=== PATIENT | male | born 2000 | race African-American/Black ===

== ENCOUNTER 2023-03-10 15:15 | Outpatient (CLI) | payer OTHER ==
[2023-03-11 03:52] LABS: CHLAMYDIA TRACHOMATIS DNA NEGATIVE (NEGATIVE)
[2023-03-11 03:53] LABS: NEISSERIA GONORRHOEAE DNA NEGATIVE (NEGATIVE); TRICHOMONAS VAGINALIS DNA NEGATIVE (NEGATIVE)
[2023-03-12 03:10] LABS: RPR Non Reactive (Non Reactive)
[2023-03-12 06:10] LABS: HIV SCREEN 4TH GENERATION Non Reactive (Non Reactive)
== END 2023-03-10 15:30 | disposition home or self-care (01) ==
LOC: LAB.N 15:15
PROVIDERS: ATTEND Specialist
DX: Z11.3 Encounter for screening for infections with a predominantly sexual mode of transmission (principal)
CPT/HCPCS: 36415; 86592; 87389; 87491; 87591; 87661